=== PATIENT | male | born 1945 | race Caucasian/White ===

== ENCOUNTER 2021-04-02 16:29 | Observation (INO) | payer MEDICARE, OTHER, SELFPAY ==
[2021-04-02] VITALS (10 sets, daily range): BP systolic 115–126; BP diastolic 56–69; PULSE 55–77; RESP 11–18; TEMP 36.4–36.8; O2SAT 98–100; BMI 25.3
--- NOTE | ~2021-04-02 | XR_ITS ---
EXAMINATION: XR chest 2V 04/02/2021 18:14 INDICATION: Chest pain PROCEDURE: PA and lateral views of the chest COMPARISON: No prior studies for comparison. FINDINGS: The cardiomediastinal silhouette is within normal limits. There are no pleural effusions. There is no pneumothorax suspected. Lingular infiltrates. IMPRESSION: 1: Lingular infiltrates which may represent atelectasis or developing pneumonia. Reviewed, dictated and finalized at location A. IMPRESSION: 1: Lingular infiltrates which may represent atelectasis or developing pneumoni a.
[2021-04-02 17:06] LABS: Basophils Absolute Auto 0.1 K/mm3 (0.0-0.1); Basophils Percent Auto 0.7 % (0.2-1.2); Eosinophils Absolute Auto 0.4 K/mm3 (0-0.3); Eosinophils Percent Auto 4.6 % (0-4.4); Hematocrit 43.3 % (42.0-52.0); Hemoglobin 14.3 g/dL (14.0-18.0); Immature Granulocyte Absolute 0.04 K/mm3 (0.00-0.031); Immature Granulocyte Percent A 0.5 % (0-0.5); Lymphocytes Absolute Auto 2.25 K/mm3 (0.9-3.2); Lymphocytes Percent Auto 27.7 % (18.3-44.2); Mean Corpuscular Hemoglobin 32.4 pg (26-34); Mean Platelet Volume 9.4 fl (7.4-10.4); Monocytes Absolute Auto 0.9 K/mm3 (0.1-0.6); Monocytes Percent Auto 10.9 % (2.6-8.5); Neutrophils Absolute Auto 4.5 K/mm3 (1.3-6.7); Neutrophils Percent Auto 55.6 % (45.5-73.1); Platelet Count Result 266 k/mm3 (150-375); Red Blood Count 4.42 M/mm3 (4.6-6.20); Red Cell Distribution Width 12.7 % (11.5-14.5); White Blood Count 8.1 K/mm3 (4.5-10.0)
[2021-04-02 17:15] LABS: Alanine Aminotransferase 46 U/L (4-50); Albumin Level 4.5 g/dL (3.5-5.1); Alkaline Phosphatase 85 U/L (38-126); Anion Gap 10 mmol/L (8-16); Aspartate Amino Transferase 106 U/L (17-59); Bilirubin,Total 0.8 mg/dL (0.2-1.3); Blood Urea Nitrogen 15 mg/dL (9-20); Calcium 9.6 mg/dL (8.4-10.2); Carbon Dioxide 26 mmol/L (22-30); Chloride 100 mmol/L (98-107); Estimated CRCL calculation 59 ml/min; Estimated Glomerular Filt Rate > 60; Glucose 115 mg/dL (75-110); Lipase 519 U/L (23-300); Potassium 4.4 mmol/L (3.4-5.0); Sodium 136 mmol/L (137-145)
[2021-04-02 17:28] LABS: Troponin I 0.051 ng/mL (0.000-0.034)
--- NOTE | 2021-04-02 17:36 | ECG_ITS ---
Measurements Intervals [place] Rate: 56 P: 32 TN: 178 QRS: 48 QRSD: 100 T: 45 QT: 398 QTc: 387 Interpretive Statements SINUS BRADYCARDIA BORDERLINE ST-T WAVE ABNORMALITY- INFERIOR LEADS BASELINE ARTIFACT- I, II, III, AVR, AVL, AVF, V1-V6 BORDERLINE ECG Electronically Signed On 04-02-2021 18:58:54 CDT by Héctor Metzger D.O.
--- NOTE | 2021-04-02 18:01 | ED.GENADULT ---
HPI - General Adult General Chief complaint: Abdominal Pain Stated complaint: cp Time Seen by Provider: 04/02/21 17:32 History of Present Illness HPI narrative: Patient is a 75-year-old male who presents to the ER with epigastric pain. Sudden onset this afternoon while at rest. Lasted for approximately 30 minutes. Associated with diaphoresis and near syncope. It is in his upper epigastrium right at the sternum. No radiation to the neck/back/shoulder. No history of chest pain or cardiac disease. Denies any nausea or vomiting or diarrhea. Symptoms of resolved. Related Data Home Medications Medication Instructions Recorded Confirmed Fish Oil 04/02/21 M.V.I. 04/02/21 aspirin [Adult Aspirin EC Low 04/02/21 Strength] pravastatin 04/02/21 tamsulosin mg PO 04/02/21 Allergies Allergy/AdvReac Type Severity Reaction Status Date / Time etodolac Allergy Mild Unknown Verified 04/02/21 18:25 Penicillins Allergy Mild Unknown Verified 04/02/21 18:25 Sulfa (Sulfonamide Allergy Mild Unknown Verified 04/02/21 18:25 Antibiotics) Review of Systems Review of Systems: All systems reviewed & are unremarkable except as noted in HPI and below Constitutional: Constitutional: Denies chills, Denies fever(s) and Denies weakness Comments: Diaphoresis ENT: Denies nasal congestion and Denies sore throat Cardiovascular: Cardiovascular: Reports chest pain, Denies rapid heart rate and Denies radiating jaw, neck or arm pain Respiratory: Respiratory: Denies cough and Denies dyspnea Gastrointestinal: Gastrointestinal: Denies abdominal pain, Denies nausea and Denies vomiting PMFSH Past Medical History Medical History (Updated 04/02/21 @ 18:40 by Ricardo Aguilar MD) Hyperlipidemia Hypertension Surgical History Surgical History (Updated 04/02/21 @ 18:40 by Ricardo Aguilar MD) H/O inguinal hernia repair Social History Social History (Updated 04/02/21 @ 18:40 by Ricardo Aguilar MD) Smoking status: Never smoker Exam Narrative: Exam Narrative: GENERAL: Well-appearing, well-nourished, and in no acute distress. HEAD: Normocephalic, atraumatic. CHEST: Clear to auscultation. No respiratory distress. HEART: Regular rate and rhythm. Normal peripheral pulses. ABDOMEN: Soft, nontender, nondistended. EXTREMITIES: Normal range of motion. No edema. SKIN: Warm, dry, no rash. NEURO: Alert and oriented x3. PSYCH: Normal mood and affect. Course Course Emergency Course: Informed results. Admit to hospitalist. Trend troponins. Vital Signs Vital signs: Vital Signs Temperature 97.5 F L 04/02/21 16:48 Pulse Rate 55 L 04/02/21 16:48 Respiratory Rate 16 04/02/21 16:48 Blood Pressure 124/64 04/02/21 16:48 Pulse Oximetry 98 04/02/21 16:48 Temperature 97.5 F L 04/02/21 16:48 Pulse Rate 62 04/02/21 18:16 Respiratory Rate 13 04/02/21 18:16 Blood Pressure 122/62 04/02/21 18:16 Pulse Oximetry 99 04/02/21 18:16 Medical Decision Making Vital Signs Vital Signs: Vital Signs Temperature 97.5 F L 04/02/21 16:48 Pulse Rate 55 L 04/02/21 16:48 Respiratory Rate 16 04/02/21 16:48 Blood Pressure 124/64 04/02/21 16:48 Pulse Oximetry 98 04/02/21 16:48 Temperature 97.5 F L 04/02/21 16:48 Pulse Rate 62 04/02/21 18:16 Respiratory Rate 13 04/02/21 18:16 Blood Pressure 122/62 04/02/21 18:16 Pulse Oximetry 99 04/02/21 18:16 Lab Data Result diagrams: 04/02/21 16:59 04/02/21 17:00 Labs: Lab Results 04/02/21 04/02/21 04/02/21 Range/Units 16:59 17:00 17:00 WBC 8.1 (4.5-10.0) K/mm3 RBC 4.42 L (4.6-6.20) M/mm3 Hgb 14.3 (14.0-18.0) g/dL Hct 43.3 (42.0-52.0) % MCV 98.0 (80-100) fl MCH 32.4 (26-34) pg MCHC 33.0 (32-36) g/dl RDW 12.7 (11.5-14.5) % Plt Count 266 (150-375) k/mm3 MPV 9.4 (7.4-10.4) fl Immature Gran % (Auto) 0.5 (0-0.5) % Neut % (Auto) 55.6 (45.5-73.1)
[2021-04-02 18:24] LABS: Add Urine Microscopic? YES; Appearance Urine Clear (Clear); Bacteria Urine Trace /hpf; Bilirubin Urine Negative (Negative); Blood Urine Negative (Negative); Color Urine Yellow (Yellow); Glucose Urine UA Negative (Negative); Ketones Urine Negative (Negative); Leukocyte Esterase Ur Negative LEU/UL (Negative); Nitrate Urine Negative (Negative); Protein Urine Negative (Negative); RBC Urine 0-2 /hpf (0-2); Specific Grav Ur 1.011 (1.001-1.035); WBC Urine 0-3 /hpf
[2021-04-02 21:05] LABS: Troponin I 0.047 ng/mL (0.000-0.034)
--- NOTE | 2021-04-02 21:48 | ADMIMU ---
This patient, Bryan Cook, was admitted to IMU status, and placed in IMU Room 204-04/02/21 at 2045. Patient/family oriented to hospital policies and general routines including ID bracelet, bed and alarms, visiting hours, pain management, procedures, bathroom and other care routines, personal items, smoking policy, room service/diet, and visiting hours. Information on how to activate the Rapid Response Team has been discussed. Patient/Family are encouraged to report perceived risks to care and to ask questions if they do not understand what they are told or what they should do.
[2021-04-02] MEDS: MAG HYDROX/AL HYDROX/SIMETH 30 ML UDC PO (23:14)
[2021-04-03] VITALS (10 sets, daily range): BP systolic 90–103; BP diastolic 52–60; PULSE 55–75; RESP 12–18; TEMP 36.6–36.7; O2SAT 95–99
--- NOTE | 2021-04-03 | ECHO_ITS ---
Patient Info Name: Bryan Cook Age: 75 years : 1945 Gender: Male Ht: 70 in Wt: 176 lbs BSA: 1.99 m2 HR: 59 bpm BP: 138 / 58 mmHg Heart Rhythm: Sinus Rhythm Technical Quality: Good Exam Date: 04/03/2021 12:10 PM Exam Location: [facility] Patient Status: Outpatient Admit Date: 04/02/2021 Staff Ordering Physician: Марина Hand MD Ditch Digger: Berenice James RDCS Attending Provider: Nataly Cmaara MD Referring Physician: Yazan SOLIMAN; Exam Type: CA echo doppler color flow Study Info Complete two-dimensional, color flow and Doppler transthoracic echocardiogram is performed. Summary 1. Complete two-dimensional, color flow and Doppler transthoracic echocardiogram is performed. 2. Left ventricular chamber dimension is normal. 3. Left ventricular systolic function is normal, estimated at 65-70%. 4. There is no increased left ventricular wall thickness. 5. The left ventricular diastolic function is grade I diastolic dysfunction. 6. Left atrial chamber dimension is mildly enlarged. 7. The aortic valve is abnormal in appearance. It is probably trileaflet with moderate sclerosis and restricted leaflet mobility especially involving the non-coronary cusp. 8. There is mild mitral valve regurgitation. 9. There is mild pulmonic regurgitation. Left Ventricle Left ventricular chamber dimension is normal. Left ventricular systolic function is normal, estimated at 65-70%. There is no increased left ventricular wall thickness. The left ventricular diastolic function is grade I diastolic dysfunction. Right Ventricle Right ventricular chamber dimension is normal. Right ventricular systolic function is normal. Left Atria Left atrial chamber dimension is mildly enlarged. Right Atria Right atrial chamber dimension is normal. Atrial Septum Intact interatrial septum visualized by color flow imaging. Aortic Valve The aortic valve is probable trileaflet. There is trace aortic valve regurgitation. The aortic valve is abnormal in appearance. It is probably trileaflet with moderate sclerosis and restricted leaflet mobility especially involving the non-coronary cusp. Pulmonic Valve The pulmonic valve is normal. There is no pulmonic valve stenosis. There is mild pulmonic regurgitation. Mitral Valve The mitral valve has calcified annulus. There is no mitral valve stenosis. There is mild mitral valve regurgitation. Tricuspid Valve The tricuspid valve leaflets are normal. There is no significant tricuspid valve stenosis. There is trace tricuspid valve regurgitation. Pericardium/Pleural The pericardium appears normal. There is trivial pericardial effusion. Inferior Vena Cava Normal inferior vena cava with >50% collapse upon inspiration consistent with normal right atrial pressure, 5 mmHg. Aorta The aortic root size at the sinus of Valsalva is normal. The prox ascending aorta size is normal. Left Ventricular Outflow Tract Name Value Normal LVOT 2D LVOT Diameter 2.0 cm LVOT Doppler LVOT Peak Gradient 4 mmHg LVOT Mean Gradient
--- NOTE | 2021-04-03 02:16 | PM.IMHP ---
H&P: HPI History of Present Illness Date/Time: 04/03/21 02:16 Chief Complaint: EPIGASTRIC PAIN Narrative: THIS IS A 75-YEAR-OLD MALE WITH NO SIGNIFICANT PAST MEDICAL HISTORY. PATIENT PRESENTED TO THE EMERGENCY ROOM AFTER HE HAD AN EPISODE OF NAUSEA VOMITING HEARTBURN WITH LUNCH WHICH HE ATTRIBUTES TO HAVING TOO MUCH SODA . PATIENT STATES THAT HE HAS BEEN HIS USUAL STATE OF HEALTH HE DENIES ANY CHEST PAIN WITH ACTIVITIES OR AT REST NO DIZZINESS NO LIGHTHEADEDNESS NO NEAR-SYNCOPE OR SYNCOPE NO PND NO ORTHOPNEA PATIENT STATES THAT THE PAIN WAS LOCALIZED TO THE EPIGASTRIC AREA NON RADIATING, NO DIAPHORESIS, NO FEVERS NO RIGORS NO CHILLS. AT THE TIME OF MY VISIT THE PATIENT WAS REQUESTING SOME TUMS TO TAKE FOR THE PAIN. PRELIMINARY WORKUP WAS SIGNIFICANT FOR SLIGHT ELEVATION OF TROPONIN AND LIPASE. Review of Systems Review of Systems: Narrative: EPIGASTRIC PAIN NAUSEA AND VOMITING Constitutional: Constitutional: Denies chills, Denies fatigue, Denies fever(s), Denies malaise and Denies weakness Eyes: Eyes: Denies change in vision ENT: Denies dysphagia, Denies dizziness, Denies nasal obstruction, Denies neck pain, Denies odynophagia and Denies disequilibrium Cardiovascular: Cardiovascular: Denies chest pain, Denies chest pain at rest, Denies irregular heart rhythm, Denies claudication, Denies leg edema, Denies lightheadedness, Denies radiating jaw, neck or arm pain, Denies palpitations and Denies dyspnea Respiratory: Respiratory: Denies cough, Denies dyspnea and Denies wheezing Gastrointestinal: Gastrointestinal: Reports abdominal pain ( EPIGASTRIC), Reports heartburn, Reports nausea, Denies odynophagia and Reports vomiting Genitourinary: Genitourinary: Reports no additional male genitourinary complaints Musculoskeletal: Musculoskeletal: Reports no additional musculoskeletal complaints Integumentary/Breasts: Skin/Breast: Reports system reviewed and no additional complaints, except as docu Neurologic: Reports system reviewed and no additional complaints, except as documented Psychiatric: Psychiatric: Reports no additional psychiatric complaints Endocrine: Endocrine: Reports no additional endocrine complaints Hematologic/Lymphatic: Hematologic/Lymphatic: Reports no additional hematologic/lymphatic complaints Allergic/Immunologic: Allergic/Immunologic: Reports no additional allergic/immunologic complaints PMFSH Past Medical History Medical History (Updated 04/03/21 @ 02:26 by Марина Hand MD) Hyperlipidemia Hypertension Surgical History Surgical History (Updated 04/02/21 @ 18:40 by Ricardo Aguilar MD) H/O inguinal hernia repair Family History Family History (Updated 04/02/21 @ 21:21 by Juliet Renee RN) Mother Heart disease Father Blood disorder Sibling Diabetes mellitus Social History Social History (Updated 04/02/21 @ 18:40 by Ricardo Aguilar MD) Smoking packs per day: 2.5 Smoking cigarettes per day: 50.0 Years smoked: 30 Smoking pack-years: 75.00 Smoking status: Former smoker Tobacco type: cigarettes Alcohol intake: current Drinks per week: 1 Substance use: former Substance use type: marijuana Last use: 40 years ago Spiritual care concerns: No Meds Home Medications and Allergies Home Medications Medication Instructions Recorded Confirmed Type aspirin [Adult Aspirin EC Low 81 mg PO DAILY 04/02/21 04/02/21 History Strength] multivit with min-folic acid 1 tablet PO DAILY 04/02/21 04/02/21 History [Adult One Daily Multivitamin] omega 4-fip-qza-fish oil [Fish Oil] 1 cap PO DAILY 04/02/21 04/02/21 History pravastatin 40 mg PO DAILY 04/02/21 04/02/21 History tamsulosin 0.4 mg PO DAILY 04/02/21 04/02/21 History Allergies Allergy/AdvReac Type Severity Reaction Status Date / Time etodolac Allergy Mild Unknown Verified 04/02/21 18:25 Penicillins Allergy Mild Unknown Verified 04/02/21 18:25 Sulfa (Sulfonamide Allergy Mild Unknown Verifie
[2021-04-03 05:30] LABS: Troponin I 0.052 ng/mL (0.000-0.034)
[2021-04-03] MEDS: OMEGA 3 POLYUNSAT FATTY ACIDS 1 GM CAP PO (08:17)
[2021-04-03] MEDS: THERAPEUTIC MULTIVITAMINS/MINERALS TAB (*BKC) 1 TABLET PO (08:17)
[2021-04-03] MEDS: PRAVASTATIN SODIUM 20 MG TABLET 40 MG PO (08:17)
[2021-04-03] MEDS: TAMSULOSIN HCL 0.4 MG CAPSULE PO (08:17)
--- NOTE | 2021-04-03 11:46 | WPDGICN ---
Assessment and Plan Assessment and plan (1) Epigastric pain: Onset Date: ~04/03/21 Code(s): R10.13 - Epigastric pain Status: Acute Assessment and Plan: This very pleasant 75 yo with acute onset of epigastric pain, nausea and vomiting: this could be related to esophagitis, ulcers, erosions, pancreatits, gallstones. - Start daily PPI. - Ultrasound of abdomen. - EGD - may be done as outpatient or Monday if he is still inpatient. GI Consult Note Consult date/time: 04/03/21 11:46 HPI: Bryan Cook is a 75 year old male with a history of BPH, HLD, Allergies, hernia repair, hemorrhoidectomy, who is here for epigastric pain with nausea and vomiting. HE PRESENTED TO THE EMERGENCY ROOM AFTER HE HAD AN EPISODE OF NAUSEA VOMITING, EPIGASTRIC PAIN AND HEARTBURN AROUND 3:30 PM. HE ATTRIBUTES TO HAVING TOO MUCH SODA . THE PAIN WAS EPIGASTRIC AREA, NON RADIATING, MILD DIAPHORESIS, PALE AND FELT CLAMMY. HIS SYMPTOMS WERE INTENSE SO HIS BROUGHT HIM TO ER. THE PAIN DID NOT GET BETTER UNTIL HE TOOK SOME MAALOX LAST NIGHT AT 10 PM AND IT HAS COMPLETELY SUBSIDED. HE HAS HAD SIMILAR BOUTS IN THE PAST THAT ONLY LAST SECONDS TO A MINUTE AND GET BETTER ON ITS OWN. HE DENIES ANY HEARTBURN, DYSPHAGIA, ODYNOPHAGIA, WEIGHT LOSS OR APPETITE LOSS. HE HAS NORMAL BM DAILY. NO BLACK OR BLOODY STOOLS. HE HAD A COLONOSCOPY 10 YEARS AGO. NO FAMILY HISTORY OF GI CANCER. HIS TROPONIN WAS ELEVATED AT .051, AST 106, ALT 46, ALK PHOS 85, H & H 14 AND 43. WBC 8, LIPASE 519. Review of Systems Constitutional: Constitutional: Reports no additional constitutional complaints Respiratory: Respiratory: Reports no additional respiratory complaints Gastrointestinal: Gastrointestinal: Reports as per HPI COUNTS INCLUDE 234 BEDS AT THE [facility] Past Medical History Medical History (Updated 04/03/21 @ 12:05 by Miri Calero APRN) Hyperlipidemia Hypertension Surgical History Surgical History (Updated 04/02/21 @ 18:40 by Ricardo Aguilar MD) H/O inguinal hernia repair Family History Family History (Updated 04/02/21 @ 21:21 by Juliet Renee RN) Mother Heart disease Father Blood disorder Sibling Diabetes mellitus Social History Social History (Updated 04/02/21 @ 18:40 by Ricardo Aguilar MD) Smoking packs per day: 2.5 Smoking cigarettes per day: 50.0 Years smoked: 30 Smoking pack-years: 75.00 Smoking status: Former smoker Tobacco type: cigarettes Alcohol intake: current Drinks per week: 1 Substance use: former Substance use type: marijuana Last use: 40 years ago Spiritual care concerns: No Meds Home Medications and Allergies Home Medications Medication Instructions Recorded Confirmed Type aspirin [Adult Aspirin EC Low 81 mg PO DAILY 04/02/21 04/02/21 History Strength] multivit with min-folic acid 1 tablet PO DAILY 04/02/21 04/02/21 History [Adult One Daily Multivitamin] omega 1-iyl-loy-fish oil [Fish Oil] 1 cap PO DAILY 04/02/21 04/02/21 History pravastatin 40 mg PO DAILY 04/02/21 04/02/21 History tamsulosin 0.4 mg PO DAILY 04/02/21 04/02/21 History Allergies Allergy/AdvReac Type Severity Reaction Status Date / Time etodolac Allergy Mild Unknown Verified 04/02/21 18:25 Penicillins Allergy Mild Unknown Verified 04/02/21 18:25 Sulfa (Sulfonamide Allergy Mild Unknown Verified 04/02/21 18:25 Antibiotics) Vital Signs Vital Signs - 24 hr 04/02/21 16:48 04/02/21 17:46 04/02/21 18:14 Temperature 36.4 C L Pulse Rate 55 L 68 66 Respiratory Rate 16 16 11 L Blood Pressure 124/64 125/69 126/57 L Pulse Oximetry 98 99 100 04/02/21 18:16 04/02/21 18:31 04/02/21 18:50 Temperature 36.8 C Pulse Rate 62 66 68 Respiratory Rate 13 12 18 Blood Pressure 122/62 115/56 L 123/63 Pulse Oximetry 99 99 98 04/02/21 19:01 04/02/21 20:45 04/02/21 20:57 Temperature 36.8 C 36.7 C Pulse Rate 68 68 63 Respiratory Rate 14 16 16 Blood Pressure 123/63 123/63 124/57 L Pulse Oximetry 99
--- NOTE | 2021-04-03 13:05 | PM.DS ---
DS: Admitting Diagnosis Admitting Diagnosis Admitting Diagnosis: epigastric pain DS: Discharge Diagnosis Discharge Diagnosis (1) Elevated troponin: Code(s): R77.8 - Other specified abnormalities of plasma proteins Status: Acute (2) Nausea and vomiting: Code(s): R11.2 - Nausea with vomiting, unspecified Status: Acute (3) Epigastric pain: Onset Date: ~04/03/21 Code(s): R10.13 - Epigastric pain Status: Acute DS: Summary Hospital Course Reason for hospitalization: Epigastric discomfort with nausea vomiting Hospital Course: Mr. farr is a 75-year-old active gentleman walks about 7 miles per day. He was sitting quietly at about 3:00 p.m. on the day of admission paying bills and drinking soda. he had sudden onset of epigastric deep aching pain without radiation with associated nausea vomiting. He came to the emergency department and had an unremarkable EKG and chest x-ray with suggestion of possible infiltrates that of present her very faint on my review. His oxygen saturations and vital signs were stable. His troponins were minimally elevated and flat. His pain resolved immediately with oral antacids. It did not recur. He has never had similar pain in the past. No history of gastrointestinal issues. Last colonoscopy was about 10 years ago. Remainder labs were unremarkable including CBC CMP. Lipase was minimally elevated at 519. Echocardiogram was performed and results are still pending. He was feeling good and tolerating his diet and wished to go home. He was to follow-up with Dr. cristiane pimentel who saw him for gastroenterology consultation and with Dr. Ballard his primary care physician. He will call both offices to schedule 1st available point months for hospital follow-up. If his symptoms recur and not resolve immediately with antacids he will return to the emergency department. Status at Discharge Overall status at discharge: patient is back to baseline Time Spent with Patient Time attestation: Total time spent providing and/or coordinating discharge services: Time spent: Greater than 30 minutes Exam Narrative: Exam Narrative: HEENT: PERRL, sclerae nonicteric, pharyngeal mucosa pink and intact NECK: No JVD, adenopathy, or thyromegaly CHEST: Clear to auscultation. Normal effort. HEART: NL S1/S2, regular, no murmur ABDOMEN: BS+, soft, nontender, no mass, no bruits EXTREMITIES: No cyanosis, edema, or clubbing NEUROLOGIC: CN intact and symmetric to inspection. MUSCULOSKELETAL: Tone and strength symmetric. PSYCH: Alert. Oriented to person, place, and time. DS: Data Data Completed and Pending Labs on day of discharge: Labs from last 24 hours 04/03/21 04/02/21 04/02/21 04:27 20:33 18:06 WBC RBC Hgb Hct MCV MCH MCHC RDW Plt Count MPV Immature Gran % (Auto) Neut % (Auto) Lymph % (Auto) [place] % (Auto) Eos % (Auto) Baso % (Auto) Lymph # (Auto) [place] # (Auto) Eos # (Auto) Baso # (Auto) Abs Immat Gran (auto) Absolute Neuts (auto) Absolute Nucleated RBC Nucleated RBC % Sodium Potassium Chloride Carbon Dioxide Anion Gap BUN Creatinine Estim Creat Clear Calc Estimated GFR Glucose Calcium Total Bilirubin AST ALT Alkaline Phosphatase Troponin I 0.052 H* 0.047 H* Total Protein Albumin Lipase Urine Color Yellow Urine Appearance Clear Urine pH 8.0 Ur Specific [place] 1.011 Urine Protein Negative Urine Glucose (UA) Negative Urine Ketones Negative Ur Blood (Man) Negative Urine Nitrate Negative Urine Bilirubin Negative Urine Urobilinogen 2.0 H Leukocyte Esterase Rfl Negative Urine RBC 0-2 Urine WBC 0-3 Urine Bacteria Trace 04/02/21 04/02/21 04/02/21 17:00 17:00 16:59 WBC 8.1 RBC 4.42 L Hgb 14.3 Hct 43.3 MCV 98.0 MCH 32.4 MCHC 33.0 RDW 12.7 Plt Count
== END 2021-04-03 14:10 | disposition home or self-care (01) ==
LOC: ANHED 18:05 → ANHIMU 21:51
PROVIDERS: Emergency Medicine; Internal Medicine; Admitting Provider Family Medicine; Emergency Provider Emergency Medicine; PCP Family Medicine; Visit Provider Internal Medicine
DX: R77.8 Other specified abnormalities of plasma proteins (principal); R10.13 Epigastric pain; R11.2 Nausea with vomiting, unspecified; I10 Essential (primary) hypertension; E78.5 Hyperlipidemia, unspecified; I34.0 Nonrheumatic mitral (valve) insufficiency; I37.1 Nonrheumatic pulmonary valve insufficiency; Z87.891 Personal history of nicotine dependence
CPT/HCPCS: 36415; 71046; 80053; 81001; 83690; 84484; 85025; 93005; 93306; 99285; A9270; G0378